=== PATIENT | female | born 1975 | race Two or more races ===

== ENCOUNTER 2021-06-13 17:26 | Emergency (ER) | payer SELFPAY ==
[~2021-06-13] VITALS: Ht 157.5 cm; Wt 75.0 kg
[2021-06-13] MEDS ORDERED: NALO4SPR (17:54)
[2021-06-13] MEDS ORDERED: ondansetron 4mg rapidly disintigrating tab PO ONE (17:55)
[2021-06-13 19:19] VITALS: BP 114/78
== END 2021-06-13 20:24 | disposition home or self-care (01) ==
LOC: ER 17:27
DX: T40.411A Poisoning by fentanyl or fentanyl analogs, accidental (unintentional), initial encounter (principal); R11.10 Vomiting, unspecified; F15.90 Other stimulant use, unspecified, uncomplicated; F17.200 Nicotine dependence, unspecified, uncomplicated; F90.9 Attention-deficit hyperactivity disorder, unspecified type; Z79.899 Other long term (current) drug therapy; Y92.89 Other specified places as the place of occurrence of the external cause
CPT/HCPCS: 82948; 99283